=== PATIENT | male | born 1990 | race Caucasian/White ===

== ENCOUNTER → 2018-09-20 | Emergency (ER) | payer OTHER ==
[~2018-09-20] VITALS: Ht 175.3 cm; Wt 83.0 kg
[~2018-09-20] MED LIST: Augmentin PO; FLONASE16 GM NASAL; INTESTINEX680 M1 PO
== END | disposition home or self-care (01) ==
LOC: ER 16:03
DX: R42 Dizziness and giddiness (principal)